=== PATIENT | male | born 1955 | race Caucasian/White ===

== ENCOUNTER 2018-05-07 17:00 | Inpatient (IN) | payer BC ==
[~2018-05-07] VITALS: Ht 170.2 cm; Wt 82.8 kg
[2018-05-07 17:54] VITALS: BP 160/89
[2018-05-07] MEDS ORDERED: DEXT 5%/0.45% NACL 1000ML 1,000 ML IV SCH (18:30)
[2018-05-07 20:00] VITALS: BP 169/85
[2018-05-07] MEDS: ATORVASTATIN CALCIUM 40MG TABLET PO SCH (21:20)
[2018-05-07] MEDS: HYDRALAZINE HCL 100MG TABLET PO SCH (21:20)
[2018-05-07] MEDS: CLONIDINE 0.1MG TABLET PO SCH (21:21)
[2018-05-08 00:51] VITALS: BP 150/79
[2018-05-08] MEDS: CLONIDINE 0.1MG TABLET PO SCH ×3 (06:05→22:09)
[2018-05-08] MEDS ORDERED: PNEUMOCOCCAL 23-VAL P-SAC VAC 0.5 ML IM ONE (08:00)
[2018-05-08 08:15] VITALS: BP 149/81
[2018-05-08] MEDS: NEBIVOLOL HCL 5 MG TABLET PO SCH (09:00)
[2018-05-08] MEDS: HYDRALAZINE HCL 100MG TABLET PO SCH ×2 (09:07→20:40)
[2018-05-08] MEDS: ENOXAPARIN 40MG/0.4ML SYR SUBCUT SCH (09:07)
[2018-05-08] MEDS: AMLODIPINE 5MG TABLET PO SCH ×2 (09:08→20:40)
[2018-05-08] MEDS: CLOPIDOGREL 75MG TABLET PO SCH (09:08)
[2018-05-08] MEDS ORDERED: INFLUENZA VIRUS VACCINE(AFLURIA) 0.5ML SYR IM ONE (10:00)
[2018-05-08 11:29] LABS: CHLORIDE 110 mEq/L (98-107)
[2018-05-08 13:30] VITALS: BP 175/86
[2018-05-08] MEDS ORDERED: BISACODYL 5MG TABLET PO PRN (18:45)
[2018-05-08 20:00] VITALS: BP 163/87
[2018-05-08 20:27] LABS: CLARITY URINE CLEAR (CLEAR); COLOR URINE YELLOW (YELLOW); KETONES URINE NEGATIVE (NEGATIVE); LEUKOCYTE ESTERASE URINE NEGATIVE (NEGATIVE); NITRITE URINE NEGATIVE (NEGATIVE); OCCULT BLOOD URINE NEGATIVE (NEGATIVE); PROTEIN URINE 1+ (NEGATIVE); SPECIFIC GRAVITY URINE 1.012 (1.005-1.030); UROBILINOGEN URINE 0.2 E.U./dL (0.2-1.0)
[2018-05-08] MEDS: ATORVASTATIN CALCIUM 40MG TABLET PO SCH (20:39)
[2018-05-08] MEDS: DOCUSATE SODIUM 100MG CAPSULE PO SCH (20:39)
[2018-05-09] MEDS: CLONIDINE 0.1MG TABLET PO SCH ×3 (06:11→22:22)
[2018-05-09 08:00] VITALS: BP 147/74
[2018-05-09] MEDS: POLYETHYLENE GLYCOL 3350 (17GM) 1 DOSE PACK PO SCH (09:07)
[2018-05-09] MEDS: ENOXAPARIN 40MG/0.4ML SYR SUBCUT SCH (09:08)
[2018-05-09] MEDS: AMLODIPINE 5MG TABLET PO SCH ×2 (09:08→21:03)
[2018-05-09] MEDS: NEBIVOLOL HCL 5 MG TABLET PO SCH (09:09)
[2018-05-09] MEDS: CLOPIDOGREL 75MG TABLET PO SCH (09:09)
[2018-05-09] MEDS: HYDRALAZINE HCL 100MG TABLET PO SCH ×2 (09:09→21:02)
[2018-05-09] MEDS: DOCUSATE SODIUM 100MG CAPSULE PO SCH ×2 (09:09→17:28)
[2018-05-09 20:00] VITALS: BP 114/60
[2018-05-09] MEDS: ATORVASTATIN CALCIUM 40MG TABLET PO SCH (21:03)
[2018-05-10] MEDS: CLONIDINE 0.1MG TABLET PO SCH ×3 (06:10→21:00)
[2018-05-10 07:05] LABS: HEMATOCRIT. 37.2 % (42.0-52.0); HEMOGLOBIN. 12.4 g/dL (14.0-18.0); MEAN CORPUSCULAR HEMOGLOBIN 28.1 pg (28.0-32.0); MEAN CORPUSCULAR VOLUME 84.4 fL (80.0-94.0); PLATELET 249 x1000/uL (130-400); RED BLOOD CELL COUNT 4.41 mill/uL (4.7-6.1); RED CELL DISTRIBUTION WIDTH 13.7 % (11.6-14.6)
[2018-05-10 08:00] VITALS: BP 146/71
[2018-05-10] MEDS: NEBIVOLOL HCL 5 MG TABLET PO SCH (08:54)
[2018-05-10] MEDS: ENOXAPARIN 30MG/0.3ML SYR SUBCUT SCH (08:54)
[2018-05-10] MEDS: CLOPIDOGREL 75MG TABLET PO SCH (08:54)
[2018-05-10] MEDS: HYDRALAZINE HCL 100MG TABLET PO SCH ×2 (08:54→20:59)
[2018-05-10] MEDS: AMLODIPINE 5MG TABLET PO SCH ×2 (08:54→20:59)
[2018-05-10] MEDS: DOCUSATE SODIUM 100MG CAPSULE PO SCH ×2 (08:55→17:42)
[2018-05-10] MEDS: POLYETHYLENE GLYCOL 3350 (17GM) 1 DOSE PACK PO SCH (08:55)
[2018-05-10 09:36] LABS: PLATELET ESTIMATE NORMAL
[2018-05-10 20:00] VITALS: BP 127/57
[2018-05-10] MEDS: ATORVASTATIN CALCIUM 40MG TABLET PO SCH (20:59)
[2018-05-11] MEDS: CLONIDINE 0.1MG TABLET PO SCH ×3 (05:08→23:35)
[2018-05-11 05:43] VITALS: BP 140/70
[2018-05-11 08:00] VITALS: BP 149/64
[2018-05-11] MEDS: NEBIVOLOL HCL 5 MG TABLET PO SCH (08:41)
[2018-05-11] MEDS: CLOPIDOGREL 75MG TABLET PO SCH (08:41)
[2018-05-11] MEDS: DOCUSATE SODIUM 100MG CAPSULE PO SCH ×2 (08:41→17:13)
[2018-05-11] MEDS: POLYETHYLENE GLYCOL 3350 (17GM) 1 DOSE PACK PO SCH (08:42)
[2018-05-11] MEDS: HYDRALAZINE HCL 100MG TABLET PO SCH ×2 (08:42→22:01)
[2018-05-11] MEDS: AMLODIPINE 5MG TABLET PO SCH ×2 (08:42→23:35)
[2018-05-11] MEDS: ENOXAPARIN 30MG/0.3ML SYR SUBCUT SCH (08:42)
[2018-05-11 19:32] LABS: BASOPHILS % 1.3 % (0.0-2.0); EOSINOPHILS % 3.4 % (0.0-5.0); HEMATOCRIT. 37.5 % (42.0-52.0); HEMOGLOBIN. 12.5 g/dL (14.0-18.0); LYMPHOCYTES % 13.3 % (20.0-50.0); MEAN CORPUSCULAR HEMOGLOBIN 28.5 pg (28.0-32.0); MEAN CORPUSCULAR VOLUME 85.4 fL (80.0-94.0); MEAN PLATELET VOLUME 9.3 fl (7.4-10.4); MONOCYTES % 6.6 % (2.0-8.0); NEUTROPHILS % 75.4 % (40.0-76.0); PLATELET 288 x1000/uL (130-400); RED BLOOD CELL COUNT 4.39 mill/uL (4.7-6.1); RED CELL DISTRIBUTION WIDTH 13.8 % (11.6-14.6)
[2018-05-11 20:00] VITALS: BP 154/71
[2018-05-11] MEDS: ATORVASTATIN CALCIUM 40MG TABLET PO SCH (22:01)
[2018-05-12] MEDS: CLONIDINE 0.1MG TABLET PO SCH ×3 (06:00→22:00)
[2018-05-12 08:04] VITALS: BP 170/81
[2018-05-12] MEDS: DOCUSATE SODIUM 100MG CAPSULE PO SCH ×2 (09:53→17:36)
[2018-05-12] MEDS: POLYETHYLENE GLYCOL 3350 (17GM) 1 DOSE PACK PO SCH (09:53)
[2018-05-12] MEDS: CLOPIDOGREL 75MG TABLET PO SCH (09:53)
[2018-05-12] MEDS: NEBIVOLOL HCL 5 MG TABLET PO SCH (09:54)
[2018-05-12] MEDS: AMLODIPINE 5MG TABLET PO SCH ×2 (09:55→23:37)
[2018-05-12] MEDS: HYDRALAZINE HCL 100MG TABLET PO SCH ×2 (09:55→23:36)
[2018-05-12] MEDS: ENOXAPARIN 30MG/0.3ML SYR SUBCUT SCH (09:55)
[2018-05-12] MEDS: LOSARTAN POTASSIUM 50 MG TABLET PO SCH (12:08)
[2018-05-12 20:00] VITALS: BP 150/68
[2018-05-12] MEDS: ATORVASTATIN CALCIUM 40MG TABLET PO SCH (23:36)
[2018-05-13] MEDS: CLONIDINE 0.1MG TABLET PO SCH ×3 (07:08→22:00)
[2018-05-13 08:00] VITALS: BP 158/74
[2018-05-13] MEDS: ENOXAPARIN 30MG/0.3ML SYR SUBCUT SCH (08:56)
[2018-05-13] MEDS: CLOPIDOGREL 75MG TABLET PO SCH (08:57)
[2018-05-13] MEDS: DOCUSATE SODIUM 100MG CAPSULE PO SCH ×2 (08:57→16:01)
[2018-05-13] MEDS: NEBIVOLOL HCL 5 MG TABLET PO SCH (08:57)
[2018-05-13] MEDS: AMLODIPINE 5MG TABLET PO SCH ×2 (08:58→21:11)
[2018-05-13] MEDS: LOSARTAN POTASSIUM 50 MG TABLET PO SCH (08:58)
[2018-05-13] MEDS: HYDRALAZINE HCL 100MG TABLET PO SCH ×2 (08:58→21:12)
[2018-05-13] MEDS: POLYETHYLENE GLYCOL 3350 (17GM) 1 DOSE PACK PO SCH (08:59)
[2018-05-13 20:00] VITALS: BP 154/78
[2018-05-13] MEDS: ATORVASTATIN CALCIUM 40MG TABLET PO SCH (21:11)
[2018-05-14] MEDS: CLONIDINE 0.1MG TABLET PO SCH ×3 (05:59→21:04)
[2018-05-14 08:35] VITALS: BP 152/71
[2018-05-14] MEDS: ENOXAPARIN 30MG/0.3ML SYR SUBCUT SCH (08:52)
[2018-05-14] MEDS: CLOPIDOGREL 75MG TABLET PO SCH (08:53)
[2018-05-14] MEDS: HYDRALAZINE HCL 100MG TABLET PO SCH ×2 (08:53→22:38)
[2018-05-14] MEDS: LOSARTAN POTASSIUM 50 MG TABLET PO SCH (08:53)
[2018-05-14] MEDS: DOCUSATE SODIUM 100MG CAPSULE PO SCH ×2 (08:53→16:31)
[2018-05-14] MEDS: AMLODIPINE 5MG TABLET PO SCH ×2 (08:53→21:04)
[2018-05-14] MEDS: NEBIVOLOL HCL 5 MG TABLET PO SCH (08:54)
[2018-05-14] MEDS: POLYETHYLENE GLYCOL 3350 (17GM) 1 DOSE PACK PO SCH (08:54)
[2018-05-14 13:30] LABS: CHLORIDE 109 mEq/L (98-107)
[2018-05-14 13:39] LABS: LDL CHOLESTEROL 47 mg/dL (5-100)
[2018-05-14 13:40] LABS: PHOSPHORUS 3.7 mg/dL (2.5-4.9)
[2018-05-14 13:41] LABS: HDL CHOLESTEROL 38 mg/dL (40-59)
[2018-05-14 20:00] VITALS: BP 154/70
[2018-05-14] MEDS: ATORVASTATIN CALCIUM 40MG TABLET PO SCH (21:04)
[2018-05-15] MEDS: CLONIDINE 0.1MG TABLET PO SCH ×3 (05:28→22:00)
[2018-05-15 07:15] VITALS: BP 154/70
[2018-05-15] MEDS: POLYETHYLENE GLYCOL 3350 (17GM) 1 DOSE PACK PO SCH (09:00)
[2018-05-15] MEDS: NEBIVOLOL HCL 5 MG TABLET PO SCH (09:00)
[2018-05-15] MEDS: ENOXAPARIN 30MG/0.3ML SYR SUBCUT SCH (09:15)
[2018-05-15] MEDS: CLOPIDOGREL 75MG TABLET PO SCH (09:15)
[2018-05-15] MEDS: LOSARTAN POTASSIUM 100 MG TABLET PO SCH (09:17)
[2018-05-15] MEDS: AMLODIPINE 5MG TABLET PO SCH (09:17)
[2018-05-15] MEDS: DOCUSATE SODIUM 100MG CAPSULE PO SCH ×2 (09:17→17:00)
[2018-05-15] MEDS: HYDRALAZINE HCL 100MG TABLET PO SCH (09:18)
[2018-05-15 14:19] VITALS: BP 152/67
[2018-05-15] MEDS: HYDRALAZINE HCL 50MG TABLET PO SCH ×2 (14:35→22:07)
[2018-05-15 20:00] VITALS: BP 156/64
[2018-05-15] MEDS: ATORVASTATIN CALCIUM 40MG TABLET PO SCH (20:49)
[2018-05-15] MEDS: NIFEDIPINE XL 60MG TAB PO SCH (20:50)
[2018-05-16] MEDS: HYDRALAZINE HCL 50MG TABLET PO SCH ×3 (05:42→21:08)
[2018-05-16] MEDS: CLONIDINE 0.1MG TABLET PO SCH ×3 (05:43→21:08)
[2018-05-16 08:08] VITALS: BP 137/59
[2018-05-16 08:42] LABS: BASOPHILS % 1.4 % (0.0-2.0); EOSINOPHILS % 5.1 % (0.0-5.0); HEMATOCRIT. 34.8 % (42.0-52.0); HEMOGLOBIN. 11.8 g/dL (14.0-18.0); LYMPHOCYTES % 15.7 % (20.0-50.0); MEAN CORPUSCULAR HEMOGLOBIN 28.9 pg (28.0-32.0); MEAN PLATELET VOLUME 9.9 fl (7.4-10.4); MONOCYTES % 6.7 % (2.0-8.0); NEUTROPHILS % 71.1 % (40.0-76.0); PLATELET 237 x1000/uL (130-400); RED BLOOD CELL COUNT 4.09 mill/uL (4.7-6.1); RED CELL DISTRIBUTION WIDTH 13.8 % (11.6-14.6)
[2018-05-16] MEDS: POLYETHYLENE GLYCOL 3350 (17GM) 1 DOSE PACK PO SCH (09:07)
[2018-05-16] MEDS: LOSARTAN POTASSIUM 100 MG TABLET PO SCH (09:07)
[2018-05-16] MEDS: DOCUSATE SODIUM 100MG CAPSULE PO SCH ×2 (09:10→17:01)
[2018-05-16] MEDS: ENOXAPARIN 30MG/0.3ML SYR SUBCUT SCH (09:10)
[2018-05-16] MEDS: NIFEDIPINE XL 60MG TAB PO SCH ×2 (09:11→21:00)
[2018-05-16] MEDS: NEBIVOLOL HCL 5 MG TABLET PO SCH (09:12)
[2018-05-16] MEDS: CLOPIDOGREL 75MG TABLET PO SCH (09:12)
[2018-05-16 14:02] VITALS: BP 151/68
[2018-05-16 20:00] VITALS: BP 109/55
[2018-05-16] MEDS: ATORVASTATIN CALCIUM 40MG TABLET PO SCH (21:07)
[2018-05-17] MEDS: CLONIDINE 0.1MG TABLET PO SCH ×3 (05:38→22:00)
[2018-05-17] MEDS: HYDRALAZINE HCL 50MG TABLET PO SCH ×3 (05:38→22:00)
[2018-05-17 08:04] VITALS: BP 133/58
[2018-05-17 08:57] VITALS: BP 150/64
[2018-05-17] MEDS: DOCUSATE SODIUM 100MG CAPSULE PO SCH ×2 (08:59→16:32)
[2018-05-17] MEDS: CLOPIDOGREL 75MG TABLET PO SCH (08:59)
[2018-05-17] MEDS: NIFEDIPINE XL 60MG TAB PO SCH ×2 (08:59→21:00)
[2018-05-17] MEDS: POLYETHYLENE GLYCOL 3350 (17GM) 1 DOSE PACK PO SCH (09:00)
[2018-05-17] MEDS: LOSARTAN POTASSIUM 100 MG TABLET PO SCH (09:00)
[2018-05-17] MEDS: NEBIVOLOL HCL 5 MG TABLET PO SCH (09:00)
[2018-05-17] MEDS: ENOXAPARIN 30MG/0.3ML SYR SUBCUT SCH (09:01)
[2018-05-17 20:06] VITALS: BP 108/57
[2018-05-17] MEDS: ATORVASTATIN CALCIUM 40MG TABLET PO SCH (20:15)
[2018-05-18] MEDS: HYDRALAZINE HCL 50MG TABLET PO SCH ×3 (05:31→21:54)
[2018-05-18] MEDS: CLONIDINE 0.1MG TABLET PO SCH ×3 (05:34→21:54)
[2018-05-18 08:00] VITALS: BP 158/74
[2018-05-18] MEDS: LOSARTAN POTASSIUM 100 MG TABLET PO SCH (09:30)
[2018-05-18] MEDS: DOCUSATE SODIUM 100MG CAPSULE PO SCH ×2 (09:31→17:11)
[2018-05-18] MEDS: NIFEDIPINE XL 60MG TAB PO SCH ×2 (09:31→21:00)
[2018-05-18] MEDS: NEBIVOLOL HCL 5 MG TABLET PO SCH (09:31)
[2018-05-18] MEDS: CLOPIDOGREL 75MG TABLET PO SCH (09:31)
[2018-05-18] MEDS: POLYETHYLENE GLYCOL 3350 (17GM) 1 DOSE PACK PO SCH (09:32)
[2018-05-18] MEDS: ENOXAPARIN 30MG/0.3ML SYR SUBCUT SCH (09:32)
[2018-05-18 20:00] VITALS: BP 129/69
[2018-05-18] MEDS: ATORVASTATIN CALCIUM 40MG TABLET PO SCH (21:54)
[2018-05-19] MEDS: CLONIDINE 0.1MG TABLET PO SCH ×3 (06:00→22:00)
[2018-05-19] MEDS: HYDRALAZINE HCL 50MG TABLET PO SCH ×3 (06:02→20:50)
[2018-05-19 08:04] VITALS: BP 147/65
[2018-05-19] MEDS: POLYETHYLENE GLYCOL 3350 (17GM) 1 DOSE PACK PO SCH (09:00)
[2018-05-19] MEDS: CLOPIDOGREL 75MG TABLET PO SCH (09:03)
[2018-05-19] MEDS: NEBIVOLOL HCL 5 MG TABLET PO SCH (09:03)
[2018-05-19] MEDS: NIFEDIPINE XL 60MG TAB PO SCH ×2 (09:03→20:50)
[2018-05-19] MEDS: DOCUSATE SODIUM 100MG CAPSULE PO SCH ×2 (09:03→16:32)
[2018-05-19] MEDS: ENOXAPARIN 30MG/0.3ML SYR SUBCUT SCH (09:04)
[2018-05-19] MEDS: LOSARTAN POTASSIUM 100 MG TABLET PO SCH (09:04)
[2018-05-19 13:05] VITALS: BP 159/67
[2018-05-19 20:00] VITALS: BP 156/76
[2018-05-19] MEDS: ATORVASTATIN CALCIUM 40MG TABLET PO SCH (20:50)
[2018-05-20] MEDS: HYDRALAZINE HCL 50MG TABLET PO SCH ×3 (05:54→22:08)
[2018-05-20] MEDS: CLONIDINE 0.1MG TABLET PO SCH ×3 (05:54→22:00)
[2018-05-20 07:59] VITALS: BP 134/59
[2018-05-20] MEDS: NIFEDIPINE XL 60MG TAB PO SCH ×2 (08:24→22:08)
[2018-05-20] MEDS: LOSARTAN POTASSIUM 100 MG TABLET PO SCH (08:24)
[2018-05-20] MEDS: CLOPIDOGREL 75MG TABLET PO SCH (08:24)
[2018-05-20] MEDS: NEBIVOLOL HCL 5 MG TABLET PO SCH (08:24)
[2018-05-20] MEDS: ENOXAPARIN 30MG/0.3ML SYR SUBCUT SCH (08:25)
[2018-05-20] MEDS: DOCUSATE SODIUM 100MG CAPSULE PO SCH ×2 (08:25→16:32)
[2018-05-20] MEDS: POLYETHYLENE GLYCOL 3350 (17GM) 1 DOSE PACK PO SCH (08:26)
[2018-05-20 20:00] VITALS: BP 130/54
[2018-05-20] MEDS: ATORVASTATIN CALCIUM 40MG TABLET PO SCH (22:08)
[2018-05-21] MEDS: CLONIDINE 0.1MG TABLET PO SCH ×3 (05:42→21:06)
[2018-05-21] MEDS: HYDRALAZINE HCL 50MG TABLET PO SCH ×3 (05:42→21:06)
[2018-05-21 06:59] LABS: BASOPHILS % 1.6 % (0.0-2.0); EOSINOPHILS % 4.5 % (0.0-5.0); HEMATOCRIT. 38.1 % (42.0-52.0); HEMOGLOBIN. 12.4 g/dL (14.0-18.0); LYMPHOCYTES % 14.4 % (20.0-50.0); MEAN PLATELET VOLUME 9.6 fl (7.4-10.4); MONOCYTES % 7.4 % (2.0-8.0); NEUTROPHILS % 72.1 % (40.0-76.0); PLATELET 226 x1000/uL (130-400); RED BLOOD CELL COUNT 4.43 mill/uL (4.7-6.1); RED CELL DISTRIBUTION WIDTH 13.7 % (11.6-14.6)
[2018-05-21 07:49] VITALS: BP 128/64
[2018-05-21] MEDS: LOSARTAN POTASSIUM 100 MG TABLET PO SCH (08:31)
[2018-05-21] MEDS: DOCUSATE SODIUM 100MG CAPSULE PO SCH ×2 (08:31→17:41)
[2018-05-21] MEDS: CLOPIDOGREL 75MG TABLET PO SCH (08:31)
[2018-05-21] MEDS: NEBIVOLOL HCL 5 MG TABLET PO SCH (08:32)
[2018-05-21] MEDS: NIFEDIPINE XL 60MG TAB PO SCH ×2 (08:32→21:05)
[2018-05-21] MEDS: POLYETHYLENE GLYCOL 3350 (17GM) 1 DOSE PACK PO SCH ×2 (08:32→08:36)
[2018-05-21] MEDS: ENOXAPARIN 30MG/0.3ML SYR SUBCUT SCH (08:32)
[2018-05-21 20:04] VITALS: BP 131/56
[2018-05-21] MEDS: ATORVASTATIN CALCIUM 40MG TABLET PO SCH (21:05)
[2018-05-22] MEDS: CLONIDINE 0.1MG TABLET PO SCH ×3 (05:25→21:45)
[2018-05-22] MEDS: HYDRALAZINE HCL 50MG TABLET PO SCH ×3 (05:25→21:41)
[2018-05-22 05:26] VITALS: BP 114/69
[2018-05-22 08:00] VITALS: BP 153/77
[2018-05-22] MEDS: POLYETHYLENE GLYCOL 3350 (17GM) 1 DOSE PACK PO SCH (09:00)
[2018-05-22] MEDS: LOSARTAN POTASSIUM 100 MG TABLET PO SCH (09:24)
[2018-05-22] MEDS: CLOPIDOGREL 75MG TABLET PO SCH (09:24)
[2018-05-22] MEDS: DOCUSATE SODIUM 100MG CAPSULE PO SCH ×2 (09:24→16:49)
[2018-05-22] MEDS: NIFEDIPINE XL 60MG TAB PO SCH ×2 (09:25→21:42)
[2018-05-22] MEDS: ENOXAPARIN 30MG/0.3ML SYR SUBCUT SCH (09:25)
[2018-05-22] MEDS: NEBIVOLOL HCL 5 MG TABLET PO SCH (09:27)
[2018-05-22 20:00] VITALS: BP 143/64
[2018-05-22] MEDS: ATORVASTATIN CALCIUM 40MG TABLET PO SCH (21:42)
[2018-05-23] MEDS: CLONIDINE 0.1MG TABLET PO SCH ×3 (06:00→22:00)
[2018-05-23] MEDS: HYDRALAZINE HCL 50MG TABLET PO SCH ×3 (06:45→22:03)
[2018-05-23 07:00] VITALS: BP 146/75
[2018-05-23] MEDS: POLYETHYLENE GLYCOL 3350 (17GM) 1 DOSE PACK PO SCH (09:00)
[2018-05-23] MEDS: CLOPIDOGREL 75MG TABLET PO SCH (10:23)
[2018-05-23] MEDS: NIFEDIPINE XL 60MG TAB PO SCH ×2 (10:23→21:15)
[2018-05-23] MEDS: NEBIVOLOL HCL 5 MG TABLET PO SCH (10:24)
[2018-05-23] MEDS: LOSARTAN POTASSIUM 100 MG TABLET PO SCH (10:24)
[2018-05-23] MEDS: DOCUSATE SODIUM 100MG CAPSULE PO SCH ×2 (10:24→17:04)
[2018-05-23] MEDS: ENOXAPARIN 30MG/0.3ML SYR SUBCUT SCH (10:25)
[2018-05-23 13:50] VITALS: BP 110/69
[2018-05-23 20:00] VITALS: BP 151/71
[2018-05-23] MEDS: ATORVASTATIN CALCIUM 40MG TABLET PO SCH (21:15)
[2018-05-23 22:05] VITALS: BP 160/74
[2018-05-24 05:05] VITALS: BP 134/55
[2018-05-24] MEDS: HYDRALAZINE HCL 50MG TABLET PO SCH ×3 (05:07→21:24)
[2018-05-24] MEDS: CLONIDINE 0.1MG TABLET PO SCH ×3 (05:07→21:24)
[2018-05-24 08:03] VITALS: BP 160/73
[2018-05-24] MEDS: NEBIVOLOL HCL 5 MG TABLET PO SCH (08:32)
[2018-05-24] MEDS: CLOPIDOGREL 75MG TABLET PO SCH (08:32)
[2018-05-24] MEDS: NIFEDIPINE XL 60MG TAB PO SCH ×2 (08:32→21:24)
[2018-05-24] MEDS: DOCUSATE SODIUM 100MG CAPSULE PO SCH ×2 (08:32→17:21)
[2018-05-24] MEDS: LOSARTAN POTASSIUM 100 MG TABLET PO SCH (08:32)
[2018-05-24] MEDS: POLYETHYLENE GLYCOL 3350 (17GM) 1 DOSE PACK PO SCH (08:33)
[2018-05-24] MEDS: ENOXAPARIN 30MG/0.3ML SYR SUBCUT SCH (08:33)
[2018-05-24 20:00] VITALS: BP 152/74
[2018-05-24] MEDS: ATORVASTATIN CALCIUM 40MG TABLET PO SCH (21:24)
[2018-05-25] MEDS: CLONIDINE 0.1MG TABLET PO SCH ×3 (06:00→23:45)
[2018-05-25] MEDS: HYDRALAZINE HCL 50MG TABLET PO SCH ×3 (06:34→21:02)
[2018-05-25 08:00] VITALS: BP 136/57
[2018-05-25] MEDS: NIFEDIPINE XL 60MG TAB PO SCH ×2 (08:29→21:02)
[2018-05-25] MEDS: CLOPIDOGREL 75MG TABLET PO SCH (08:29)
[2018-05-25] MEDS: LOSARTAN POTASSIUM 100 MG TABLET PO SCH (08:29)
[2018-05-25] MEDS: NEBIVOLOL HCL 5 MG TABLET PO SCH (08:29)
[2018-05-25] MEDS: DOCUSATE SODIUM 100MG CAPSULE PO SCH ×2 (08:29→17:49)
[2018-05-25] MEDS: ENOXAPARIN 30MG/0.3ML SYR SUBCUT SCH (08:30)
[2018-05-25] MEDS: POLYETHYLENE GLYCOL 3350 (17GM) 1 DOSE PACK PO SCH (08:30)
[2018-05-25 20:00] VITALS: BP 138/68
[2018-05-25] MEDS: ATORVASTATIN CALCIUM 40MG TABLET PO SCH (21:02)
[2018-05-26] MEDS: HYDRALAZINE HCL 50MG TABLET PO SCH ×3 (05:32→21:59)
[2018-05-26] MEDS: CLONIDINE 0.1MG TABLET PO SCH ×3 (05:33→22:00)
[2018-05-26 07:00] VITALS: BP 118/55
[2018-05-26 07:14] LABS: BASOPHILS % 1.1 % (0.0-2.0); EOSINOPHILS % 4.3 % (0.0-5.0); HEMOGLOBIN. 12.2 g/dL (14.0-18.0); LYMPHOCYTES % 13.7 % (20.0-50.0); MEAN CORPUSCULAR HEMOGLOBIN 28.2 pg (28.0-32.0); MEAN CORPUSCULAR VOLUME 85.8 fL (80.0-94.0); MEAN PLATELET VOLUME 9.6 fl (7.4-10.4); MONOCYTES % 8.3 % (2.0-8.0); NEUTROPHILS % 72.6 % (40.0-76.0); PLATELET 205 x1000/uL (130-400); RED BLOOD CELL COUNT 4.31 mill/uL (4.7-6.1); RED CELL DISTRIBUTION WIDTH 13.4 % (11.6-14.6)
[2018-05-26] MEDS: NIFEDIPINE XL 60MG TAB PO SCH ×2 (09:00→21:59)
[2018-05-26] MEDS: POLYETHYLENE GLYCOL 3350 (17GM) 1 DOSE PACK PO SCH ×2 (09:00→09:30)
[2018-05-26] MEDS: CLOPIDOGREL 75MG TABLET PO SCH (09:30)
[2018-05-26] MEDS: DOCUSATE SODIUM 100MG CAPSULE PO SCH ×2 (09:30→17:00)
[2018-05-26] MEDS: NEBIVOLOL HCL 5 MG TABLET PO SCH (09:30)
[2018-05-26] MEDS: LOSARTAN POTASSIUM 100 MG TABLET PO SCH (09:30)
[2018-05-26] MEDS: ENOXAPARIN 30MG/0.3ML SYR SUBCUT SCH (09:31)
[2018-05-26 20:00] VITALS: BP 133/62
[2018-05-26] MEDS: ATORVASTATIN CALCIUM 40MG TABLET PO SCH (21:59)
[2018-05-27] MEDS: CLONIDINE 0.1MG TABLET PO SCH ×3 (06:00→22:00)
[2018-05-27] MEDS: HYDRALAZINE HCL 50MG TABLET PO SCH ×3 (06:14→21:39)
[2018-05-27 08:10] VITALS: BP 129/51
[2018-05-27] MEDS: DOCUSATE SODIUM 100MG CAPSULE PO SCH ×2 (08:24→17:02)
[2018-05-27] MEDS: CLOPIDOGREL 75MG TABLET PO SCH (08:24)
[2018-05-27] MEDS: NIFEDIPINE XL 60MG TAB PO SCH ×2 (08:24→21:00)
[2018-05-27] MEDS: LOSARTAN POTASSIUM 100 MG TABLET PO SCH (08:25)
[2018-05-27] MEDS: NEBIVOLOL HCL 5 MG TABLET PO SCH (08:25)
[2018-05-27] MEDS: ENOXAPARIN 30MG/0.3ML SYR SUBCUT SCH (08:25)
[2018-05-27] MEDS: POLYETHYLENE GLYCOL 3350 (17GM) 1 DOSE PACK PO SCH (08:26)
[2018-05-27 13:10] VITALS: BP 146/70
[2018-05-27 20:00] VITALS: BP 124/35
[2018-05-27] MEDS: ATORVASTATIN CALCIUM 40MG TABLET PO SCH (21:37)
[2018-05-28] VITALS: BP 122/60
[2018-05-28] MEDS: CLONIDINE 0.1MG TABLET PO SCH (05:46)
[2018-05-28] MEDS: HYDRALAZINE HCL 50MG TABLET PO SCH (05:47)
[2018-05-28 08:08] VITALS: BP 155/76
[2018-05-28] MEDS: DOCUSATE SODIUM 100MG CAPSULE PO SCH (08:26)
[2018-05-28] MEDS: NIFEDIPINE XL 60MG TAB PO SCH (08:26)
[2018-05-28] MEDS: CLOPIDOGREL 75MG TABLET PO SCH (08:26)
[2018-05-28] MEDS: LOSARTAN POTASSIUM 100 MG TABLET PO SCH (08:27)
[2018-05-28] MEDS: POLYETHYLENE GLYCOL 3350 (17GM) 1 DOSE PACK PO SCH (08:27)
[2018-05-28] MEDS: NEBIVOLOL HCL 5 MG TABLET PO SCH (08:27)
[2018-05-28] MEDS: ENOXAPARIN 30MG/0.3ML SYR SUBCUT SCH (08:27)
[2018-05-28 12:51] VITALS: BP 137/76
== END 2018-05-28 13:45 | disposition home health service (06) | DRG 65 ==
PROVIDERS: ADMIT Psychiatry & Neurology Neurology; ATTEND Internal Medicine
DX: I63.9 Cerebral infarction, unspecified (principal); G81.91 Hemiplegia, unspecified affecting right dominant side; E87.0 Hyperosmolality and hypernatremia; G81.94 Hemiplegia, unspecified affecting left nondominant side; N17.9 Acute kidney failure, unspecified; N18.4 Chronic kidney disease, stage 4 (severe); I12.9 Hypertensive chronic kidney disease with stage 1 through stage 4 chronic kidney disease, or unspecified chronic kidney disease; E78.5 Hyperlipidemia, unspecified; R47.1 Dysarthria and anarthria; R47.02 Dysphasia; E86.9 Volume depletion, unspecified; F01.50 Vascular dementia, unspecified severity, without behavioral disturbance, psychotic disturbance, mood disturbance, and anxiety; F32.9 Major depressive disorder, single episode, unspecified; I70.0 Atherosclerosis of aorta; Z79.02 Long term (current) use of antithrombotics/antiplatelets
CPT/HCPCS: 36415; 80048; 80061; 83735; 84100; 85007; 85027; 90686; 90732; 92523; 92610; 93005; 97110; 97112; 97116; 97163; 97167; 97530; 97535; J1650; J3490